=== PATIENT | female | born 1950 | race Caucasian/White ===

== ENCOUNTER → 2018-12-06 | Outpatient (CLI) | payer OTHER ==
[~2018-12-06] MED LIST: ALBUTEROL NEB INH; ALDACTONE; ALDACTONE25 MG PO; AMIODARONE; ANORO ELLIPTA1 EACH INH; ASPIRIN325; AUGMENTIN 875875 M1 PO; CIPROFLOXACIN500 M1 PO; CLOPIDOGREL; COMBIVENT; COMBIVENT INH; CRESTOR; CRESTOR40 MG PO; CYANOCOBALAMI100 MCG PO; FOSAMAX 70 MG T70 M1; FUROSEMIDE; FUROSEMIDE 40 M40 M1; IRON PO; IRON325; LASIX 40 MG TAB40 M1 PO; LISINOPRIL2.5 MG PO; LISINOPRIL5 MG; LOPRESSOR; LOVASTATIN; MECLIZINE HCL12.5 MG PO; MIRALAX255 GM; NORCO 5-325 TA1 EACH PO; PACERONE 200 M200 M1 PO; PERCOCET 5-3251 EACH PO; PLAVIX 75 MG TA75 MG PO; POTASSIUM20 PO; PREDNISONE50 MG PO; PROVENTIL; SYMBICORT; SYMBICORT160 MCG/4. INH; TOPROL XL25 MG PO; TRIAM60; VENTOLIN HFA 1818 GM INH; VENTOLIN HFA INH8 GM; VENTOLIN17 GM; VITAMIN D 5050000 I1; ZPAK PO
[2018-12-06 11:23] LABS: CALCIUM 8.9 mg/dL (8.5-10.1); CREATININE 0.9 mg/dL (0.6-1.3)
== END ==
LOC: M.LAB 10:49
PROVIDERS: Internal Medicine Cardiovascular Disease
DX: I10 Essential (primary) hypertension (principal)

== ENCOUNTER 2020-04-02 04:49 | Inpatient (IN) | payer OTHER ==
[~2020-04-02] VITALS: Ht 157.5 cm; Wt 112.9 kg
[2020-04-02] VITALS (7 sets, daily range): BP systolic 113–163; BP diastolic 66–108
[~2020-04-02 04:49] MED LIST changes: -ASPIRIN325; +ASPIRIN325 PO; -FOSAMAX 70 MG T70 M1; +FOSAMAX 70 MG T70 MG PO; -FUROSEMIDE 40 M40 M1; +FUROSEMIDE 40 M40 M1 PO; -IRON325; +IRON325 PO; -LISINOPRIL5 MG; +LISINOPRIL5 MG PO
[2020-04-02 05:11] LABS: ABSOLUTE BASOPHILS 0.1 thou/uL (0.0-0.2); ABSOLUTE LYMPHOCYTES 1.8 thou/uL (0.8-5.3); ABSOLUTE MONOCYTES 0.6 thou/uL (0.0-1.2); ABSOLUTE NEUTROPHILS 6.3 thou/uL (1.6-8.1); BASOPHILS 1.1 %; EOSINOPHILS 0.5 %; HEMATOCRIT 41.8 % (37.0-47.0); HEMOGLOBIN 13.9 gm/dL (12.0-15.0); MCH 29.4 pg (26.0-34.0); MCHC 33.2 g/dL (28.0-37.0); MCV 88.7 fL (80.0-100.0); MONOCYTES 7.2 %; MPV 10.6 fl. (7.2-11.1); NUCLEATED RBCS 0 /100WBC; PLATELET COUNT* 194 thou/uL (150-400); POLYS 71.2 %; RBC 4.71 mil/uL (4.20-5.00); RDW-CV 15.9 % (10.5-14.5); WBC 8.9 thou/uL (4.0-11.0)
[2020-04-02] MEDS ORDERED: TOPROL XL25 MG PO (05:20)
[2020-04-02 05:23] LABS: CALCIUM 8.4 mg/dL (8.5-10.1); CREATININE 0.9 mg/dL (0.6-1.3); POTASSIUM 3.4 mmol/L (3.5-5.1)
[2020-04-02 05:24] LABS: APTT 28.7 Seconds (25.0-31.3); INR 1.1; PROTIME 10.8 Seconds (9.20-11.50)
[2020-04-02 05:33] LABS: ALBUMIN 3.5 g/dL (3.4-5.0); MAGNESIUM 2.1 mg/dL (1.8-2.4); TOTAL BILIRUBIN 0.7 mg/dL (<0.1-1.0); TOTAL PROTEIN 7.7 g/dL (6.4-8.2)
[2020-04-02] MEDS ORDERED: LIPITOR40 MG PO (09:56)
--- NOTE | 2020-04-02 14:14 | EKG ---
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 : 1950 Requested By: Yang Cuevas Order Number: [id number] MD: Moshe Bar Measurements Intervals [place] Rate: 94 P: -56 [place]: 168 QRS: -39 QRSD: 179 T: 144 QT: 416 QTc: 521 Interpretive Statements Sinus or ectopic atrial rhythm Atrial premature complexes Left bundle branch block left axis Compared to ECG 10/19/2017 06:42:59 Atrial premature complex(es) now present Electronically Signed On 04-02-2020 14:12:50 CDT by Moshe Bar [email or web address] <ELECTRONICALLY SIGNED> By: Moshe Bar MD, [facility] 04/02/20 1412 0504 0504 Moshe Bar MD, [facility] /EPI
[2020-04-03 00:26] VITALS: BP 135/74
[2020-04-03 04:32] VITALS: BP 146/75
[2020-04-03 05:05] LABS: CALCIUM 8.6 mg/dL (8.5-10.1); CREATININE 0.8 mg/dL (0.6-1.3); MAGNESIUM 2.3 mg/dL (1.8-2.4); POTASSIUM 4.1 mmol/L (3.5-5.1)
[2020-04-03 08:00] VITALS: BP 134/82
[2020-04-03 12:00] VITALS: BP 122/59
[2020-04-03 15:39] VITALS: BP 119/55
--- NOTE | 2020-04-03 16:12 | 2DMMODE ---
[place] [address] 2 D/M-MODE ECHOCARDIOGRAM Name: DIVINA SPICER Room: [address] IN .R.#: [id number] Admission: 04/02/20 Attend Phys: Allan Stallings Discharge: Date of : 52 Date of Service: 04/03/20 1610 Report #: [id number] THIS REPORT FOR: cc: Melissa Saucedo Maggie M. DO Liston, Michael J. MD [facility] ~ APPROVED REPORT Study performed: 04/03/2020 13:23:35 EXAM: Comprehensive 2D, Doppler, and color-flow Echocardiogram Patient Location: In-Patient BSA: 2.11 HR: 85 bpm BP: 122/59 mmHg Other Information Study Quality: Technically Limited Technically limited study due to body habitus, inability to position patient. Indications Congestive Heart Failure COPD Dyspnea 2D Dimensions IVSd: 10.93 (7-11mm) LVOT Diam: 21.17 (18-24mm) LVDd: 46.51 mm PWd: 11.61 (7-11mm) Ascending Ao: 32.91 (22-36mm) LVDs: 36.78 (25-40mm) Aortic Root: 28.67 mm Volumes Left Atrial Volume (Systole) LA ESV Index: 17.80 mL/m2 Aortic Valve AoV Peak Lewis.: 1.45 m/s AO Peak Gr.: 8.37 mmHg LVOT Max P.16 mmHg AO Mean Gr.: 4.89 mmHg LVOT Mean P.50 mmHg LVOT Max V: 1.02 m/s AO V2 VTI: 25.67 cm LVOT Mean V: 0.74 m/[place] [address] 2 D/M-MODE ECHOCARDIOGRAM Name: DIVINA SPICER Room: [address] IN M.R.#: [id number] Admission: 04/02/20 Attend Phys: Allan Stallings Discharge: Date of : 52 Date of Service: 04/03/20 1610 Report #: [id number] CARLIE (VTI): 2.25 cm2 LVOT V1 VTI: 16.40 cm Mitral Valve E/A Ratio: 1.02 MV Decel. Time: 107.74 ms MV E Max Lewis.: 0.82 m/s MV PHT: 31.24 ms MVA (PHT): 7.04 cm2 TDI E/Lateral E': 11.71 E/Medial E': 10.25 Medial E' Lewis.: 0.08 m/s Lateral E' Lewis.: 0.07 m/s Pulmonary Valve PV Peak Lewis.: 1.34 m/s PV Peak Gr.: 7.20 mmHg Left Ventricle The left ventricle is normal size. Left ventricular systolic dyssynergy noted consistent with underlying bundle branch block. Poor endocardial definition. Cannot rule out focal wall motion abnormality. Mild concentric left ventricular hypertrophy. Grossly normal. LVEF is 55%. Grade I - abnormal relaxation pattern. Right Ventricle The right ventricle is normal size. The right ventricular systolic function is normal. Atria The left atrium size is normal. The right atrium size is normal. Aortic Valve The aortic valve is normal in structure. No aortic regurgitation is present. There is no aortic valvular stenosis. Mitral Valve The mitral valve is normal in structure. There is no mitral valve regurgitation noted. No evidence of mitral valve stenosis. Tricuspid Valve The tricuspid valve is normal in structure. There is no tricuspid valve regurgitation noted. Pulmonic Valve The pulmonary valve is normal in structure. [place] [address] 2 D/M-MODE ECHOCARDIOGRAM Name: DIVINA SPICER Room: [address] IN [facility]#: [id number] Admission: 04/02/20 Attend Phys: Allan Stallings Discharge: Date of : 52 Date of Service: 04/03/20 1610 Report #: [id number] valvular regurgitation. Great Vessels The aortic root is normal in size. The IVC is dilated. Pericardium There is no pericardial effusion. <Conclusion> The left ventricle is normal size. Mild concentric left ventricular hypertrophy. Grossly normal. LVEF is 55%. Grade I - abnormal relaxation pattern. Left ventricular systolic dyssynergy noted consistent with underlying bundle branch block. Poor endocardial definition. Cannot rule out focal wall motion abnormality. The IVC is dilated. <ELECTRONICALLY SIGNED> By: Alexandr Benites MD, FACC 04/03/201609 09 09 Alexandr Benites MD, FACC /INF
[2020-04-03 20:00] VITALS: BP 117/50
[2020-04-04 00:22] VITALS: BP 129/68
[2020-04-04 04:27] VITALS: BP 130/64
[2020-04-04 08:00] VITALS: BP 122/67
[2020-04-04 11:57] VITALS: BP 110/68
[2020-04-04 15:57] VITALS: BP 135/78
[2020-04-04 20:00] VITALS: BP 130/76
[2020-04-05] VITALS (11 sets, daily range): BP systolic 98–137; BP diastolic 42–97
--- NOTE | 2020-04-05 14:17 | EKG ---
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 : 1950 Requested By: Allan Stallings Order Number: [id number] Xenia MD: Giovany Lloyd Measurements Intervals [place] Rate: 127 P: [place]: QRS: -29 QRSD: 156 T: 150 QT: 365 QTc: 531 Interpretive Statements Atrial fibrillation with rare pvc's Left bundle branch block Compared to ECG 04/02/2020 05:04:38 Ectopic atrial rhythm no longer present Atrial premature complex(es) no longer present Electronically Signed On 04-05-2020 14:15:48 CDT by Giovany Lloyd [email or web address] <ELECTRONICALLY SIGNED> By: Giovany Lloyd MD, [facility] 04/05/20 1415 0946 0946 Giovany Lloyd MD, [facility] /EPI
--- NOTE | 2020-04-05 17:03 | CON ---
[facility] [address] [place] [address] CONSULTATION Name: DIVINA SPICER Room: [address] IN M.R.#: [id number] Admission: 04/02/20 Attend Phys: Phyllis Belle Discharge: Date of : 52 Report #: [id number] THIS REPORT FOR: //name// cc: Melissa Saucedo Maggie M. DO ~ THIS REPORT FOR: //name// CC: Jeff Stallings DATE OF SERVICE: 04/02/2020 CARDIOLOGY CONSULTATION INDICATION: Paroxysmal atrial fibrillation. HISTORY OF PRESENT ILLNESS: The patient is a 69-year-old white female who has been in the hospital for several days with COPD exacerbation. She has been noted to have intermittent atrial arrhythmias during this hospitalization. Presently, she is an atrial fibrillation with a controlled ventricular response rate. She is asymptomatic with this. She has not been chronically anticoagulated. The patient had been on amiodarone remotely suggesting the possibility of prior atrial arrhythmias. The patient is a poor historian. The patient has a history of coronary artery disease with stenting to the right coronary artery in 2010. She also had a cardiomyopathy diagnosed in. Echocardiogram here in this hospitalization showed normal left ventricular systolic function. The patient denies any significant chest pain. She does report shortness of breath and orthopnea. PAST MEDICAL HISTORY: 1. Asthma/COPD. 2. Coronary artery disease. 3. Carotid disease. 4. History of cardiomyopathy. SOCIAL HISTORY: The patient is a nonsmoker. She lives with family. FAMILY HISTORY: Noncontributory. ALLERGIES: CODEINE. HOME MEDICATIONS: Furosemide 40 mg daily, Anora daily, potassium chloride [address] [place] [address] CONSULTATION Name: SPICERDIVINA Room: [address] IN [facility]#: [id number] Admission: 04/02/20 Attend Phys: Phyllis Belle Discharge: Date of : 52 Report #: [id number] mEq 2 tablets daily, metoprolol 25 mg daily, iron 325 mg daily, lisinopril 5 mg daily, aspirin 1 tablet daily. PHYSICAL EXAMINATION: VITAL SIGNS: Blood pressure 98/49, pulse 70s and irregular. GENERAL: This is an obese white female, in no distress. HEENT: Head is normocephalic, atraumatic. Extraocular muscles intact. Mucous membranes are moist. NECK: Shows a thick neck without obvious jugular venous distention. I do not appreciate bruit. CHEST: Reveals diminished breath sounds throughout with expiratory wheezes. CARDIOVASCULAR: Reveals an irregularly irregular rhythm without gallop or murmur. ABDOMEN: Reveals a very protuberant abdomen, soft, bowel sounds present. EXTREMITIES: Shows no edema. SKIN: Dry. LABORATORY DATA: A 12-lead EKG shows atrial fibrillation with a left bundle branch block with intermittent sinus rhythm. IMPRESSION AND RECOMMENDATIONS: 1. Paroxysmal atrial fibrillation. We will start flecainide after flecainide bolus and anticoagulate with Xarelto. 2. Coronary artery disease, presently stable. She is not having any angina. EF is normal. 3. Hypercoagulable state due to atrial fibrillation. We will start Xarelto. 4. History of cardiomyopathy remotely. EF on echocardiogram during this hospitalization is normal. 5. Carotid disease, presently asymptomatic. 6. Asthma and chronic obstructive pulmonary disease per hospitalist and Pulmonology. <ELECTRONICALLY SIGNED> By: Alexandr Benites MD, FACC 04/05/20 1703 1543 1559[facility] Benites MD, FACC /nt
[2020-04-05 17:04] LABS: BE 2.4 mmol/L (-2 to +3); PCO2 32.8 mmHg (35.0-45.0); PO2 84.2 mmHg (75.0-100.0)
[2020-04-06] VITALS: BP 97/36
[2020-04-06 10:00] VITALS: BP 156/77
--- NOTE | 2020-04-06 16:07 | EKG ---
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: : 1950 Requested By: Allan Stallings Order Number: [id number] Xenia MD: Giovany Lloyd Measurements Intervals [place] Rate: 85 P: -17 [place]: 226 QRS: -37 QRSD: 181 T: 131 QT: 446 QTc: 531 Interpretive Statements Sinus rhythm Prolonged [place] interval Left bundle branch block Baseline wander in lead(s) V1 Compared to ECG 04/05/2020 09:46:36 First degree AV block now present Atrial fibrillation no longer present Electronically Signed On 04-06-2020 16:05:13 CDT by Giovany Lloyd [email or web address] <ELECTRONICALLY SIGNED> By: Giovany Lloyd MD, FAC 04/06/20 1605 183 183 Giovany Lloyd MD, FAC /EPI
--- NOTE | 2020-04-06 16:30 | EKG ---
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 : 1950 Requested By: Alexandr Benites Order Number: [id number] Xenia MD: Giovany Lloyd Measurements Intervals [place] Rate: 75 P: 2 [place]: 212 QRS: -33 QRSD: 182 T: 132 QT: 476 QTc: 532 Interpretive Statements Sinus rhythm Borderline prolonged [place] interval Left bundle branch block Compared to ECG 04/05/2020 09:46:36 Atrial fibrillation no longer present Electronically Signed On 04-06-2020 16:28:23 CDT by Giovany Lloyd [email or web address] <ELECTRONICALLY SIGNED> By: Giovany Lloyd MD, FACC 04/06/20 1628 1501 1501 Giovany Lloyd MD, [facility] /EPI
[2020-04-06 18:32] VITALS: BP 120/66
[2020-04-06 20:00] VITALS: BP 132/53
[2020-04-07] VITALS: BP 124/48
[2020-04-07 04:25] VITALS: BP 144/91
[2020-04-07 08:00] VITALS: BP 130/62
[2020-04-07] MEDS ORDERED: FLECAINIDE ACET50 M1 PO (09:32)
[2020-04-07] MEDS ORDERED: XARELTO20 MG PO (09:32)
[2020-04-07 11:13] VITALS: BP 130/62
--- NOTE | 2020-04-09 18:46 | CON ---
[address] [address] CONSULTATION Name: DIVINA SPICER Room: [address] IN M.R.#: [id number] Admission: 04/02/20 Attend Phys: Phyllis Belle Discharge: 04/07/20 Date of : 52 Report #: [id number] THIS REPORT FOR: //name// cc: Melissa Saucedo Maggie M. DO ~ THIS REPORT FOR: //name// CC: Jeff Stallings DATE OF SERVICE: 04/06/2020 HISTORY OF PRESENT ILLNESS: This is a 69-year-old female patient, who was seen by me for altered mental status. I will discuss the patient with hospitalist tomorrow. This patient has paroxysmal atrial fibrillation. She has a history of coronary artery disease and she also has a chronic obstructive pulmonary disease. She was found to be impulsive. She has a history of high blood pressure, osteoporosis, hysterectomy, rheumatoid arthritis. I do not know what her baseline mental status is. We will also try to reach the family in the morning. REVIEW OF SYSTEMS: A 14-point review of systems is mostly from the hospital, from the records and this was her relevant 14-point review of systems, I need to get more history from the family tomorrow. PAST MEDICAL HISTORY: Positive for COPD. FAMILY HISTORY: Noncontributory. SOCIAL HISTORY: She does not smoke or drink any alcohol. PHYSICAL EXAMINATION: NEUROLOGIC: The patient's examination indicates she is impulsive, she is one-to-one, but she can talk. Her speech looks intact. Cranial nerve examination, cooperation was poor, so was neuromuscular examination, but it looks symmetrical. There is no meningeal sign. There is no carotid bruit. VITAL SIGNS: Blood pressure is 132/53, respirations 16, pulse is 80, temperature is 98.2. LABORATORIES: Indicate a white count of 8.9. Sodium is 137. IMPRESSION AND PLAN: Apparently, she has altered mental status, which may be encephalopathy, but she also has atrial fibrillation, so she can embolize. I will discuss with the family and hospitalist in the morning to see how her baseline is and then [place] [address] CONSULTATION Name: DIVINA SPICER Room: [address] IN [facility].#: [id number] Admission: 04/02/20 Attend Phys: Phyllis Belle Discharge: 04/07/20 Date of : 52 Report #: [id number] Thank you very much for this referral. <ELECTRONICALLY SIGNED> By: Riley Conteh MD 04/09/20 1846 2254 [id number] Conteh MD /nt
== END 2020-04-07 11:45 | disposition home or self-care (01) | DRG 177 ==
LOC: M.ERS 04:49 → M.TBA-ER 05:52 → M.2W 05:52 → M.ERS 06:05 → M.2W 06:11
PROVIDERS: Family Medicine; ADMIT Internal Medicine
DX: J69.0 Pneumonitis due to inhalation of food and vomit (principal); J96.00 Acute respiratory failure, unspecified whether with hypoxia or hypercapnia; J44.1 Chronic obstructive pulmonary disease with (acute) exacerbation; I43 Cardiomyopathy in diseases classified elsewhere; E87.1 Hypo-osmolality and hyponatremia; D68.69 Other thrombophilia; I48.20 Chronic atrial fibrillation, unspecified; E78.00 Pure hypercholesterolemia, unspecified; I25.10 Atherosclerotic heart disease of native coronary artery without angina pectoris; M81.0 Age-related osteoporosis without current pathological fracture; R47.02 Dysphasia; E87.6 Hypokalemia; J98.4 Other disorders of lung; M19.90 Unspecified osteoarthritis, unspecified site; D64.9 Anemia, unspecified; M06.9 Rheumatoid arthritis, unspecified; I11.0 Hypertensive heart disease with heart failure; I48.0 Paroxysmal atrial fibrillation; I50.9 Heart failure, unspecified; Z88.5 Allergy status to narcotic agent; Z79.899 Other long term (current) drug therapy; Z90.710 Acquired absence of both cervix and uterus; Z87.891 Personal history of nicotine dependence